=== PATIENT | male | born 1975 | race Caucasian/White ===

== ENCOUNTER 2017-12-27 10:01 | Inpatient (IN) | payer BC, OTHER ==
[2017-12-27] MEDS ORDERED: ACETAMINOPHEN 325 MG TABLET PO PRN (10:21)
--- NOTE | 2017-12-27 10:42 | PDOC H&P ---
History of Present Illness Admission Date/PCP: 12/27/17 10:01 MAK PITTMAN Patient complains of: Short of breath and wheezing History of Present Illness: MIRANDA HOLT is a 42 year old male This is a 42-year-old male with a significant history of the asthma currently on the Symbicort and pro-air and history of the childhood asthma came to the office last week with a complaining of a cough congestion's and wheezing and patient was initially put on a prednisone and antibiotic Z-Taye but patient still not improving was giving the 1 dose of the 60 mg IM dose of prednisone and put on a Medrol Dosepak and another antibioticBut the patient still not responding very well and today's in the office patient still wheezing and some mild short of breath but denied any fever no chills no chest pain and at this point decided to admit the hospitals for the outpatients failure for the persistent asthma Past Medical History Pulmonary Medical History: Reports: Asthma GI Medical History: Reports: Gastroesophageal Reflux Disease Social History Information Source: Patient Smoking Status: Never Smoker Frequency of Alcohol Use: Occasional Hx Recreational Drug Use: No Family History Family History: Reviewed & Not Pertinent Parental Family History Reviewed: Yes Children Family History Reviewed: Yes Sibling(s) Family History Reviewed.: Yes Medication/Allergy Allergies/Adverse Reactions: No Known Allergies Allergy (Unverified 12/27/17 10:36) Review of Systems Constitutional: ABSENT: chills, fever(s), headache(s), weight gain, weight loss Eyes: ABSENT: visual disturbances Ears: ABSENT: hearing changes Cardiovascular: PRESENT: dyspnea on exertion. ABSENT: chest pain, edema, orthropnea, palpitations Respiratory: PRESENT: cough. ABSENT: hemoptysis Gastrointestinal: ABSENT: abdominal pain, constipation, diarrhea, hematemesis, hematochezia, nausea, vomiting Genitourinary: ABSENT: dysuria, hematuria Musculoskeletal: ABSENT: joint swelling Integumentary: ABSENT: rash, wounds Neurological: ABSENT: abnormal gait, abnormal speech, confusion, dizziness, focal weakness, syncope Psychiatric: ABSENT: anxiety, depression, homidical ideation, suicidal ideation Endocrine: ABSENT: cold intolerance, heat intolerance, menstrual abnormalities, polydipsia, polyuria Hematologic/Lymphatic: ABSENT: easy bleeding, easy bruising, lymphadenopathy Physical Exam Vital Signs: Temp Pulse Resp BP Pulse Ox 97.3 F 65 21 H 142/80 H 95 12/27/17 10:33 12/27/17 10:33 12/27/17 10:33 12/27/17 10:33 12/27/17 10:33 Intake & Output 12/26/17 12/27/17 12/28/17 06:59 06:59 06:59 Weight 99.63 kg General appearance: PRESENT: no acute distress, well-developed, well-nourished Head exam: PRESENT: atraumatic, normocephalic Eye exam: PRESENT: conjunctiva pink, EOMI, PERRLA. ABSENT: scleral icterus Ear exam: PRESENT: normal external ear exam Mouth exam: PRESENT: moist, tongue midline Neck exam: PRESENT: full ROM. ABSENT: carotid bruit, JVD, lymphadenopathy, thyromegaly Respiratory exam: PRESENT: decreased breath sounds, wheezes Cardiovascular exam: PRESENT: RRR. ABSENT: diastolic murmur, rubs, systolic murmur Pulses: PRESENT: normal dorsalis pedis pul, +2 pedal pulses bilateral Vascular exam: PRESENT: normal capillary refill GI/Abdominal exam: PRESENT: normal bowel sounds, soft. ABSENT: distended, guarding, mass, organolmegaly, rebound, tenderness Rectal exam: PRESENT: deferred Extremities exam: ABSENT: full ROM, left AKA, right AKA, left BKA, right BKA, calf tenderness, joint swelling, pedal edema, tenderness, other Musculoskeletal exam: PRESENT: ambulatory Neurological exam: PRESENT: alert, awake, oriented to person, oriented to place , oriented to time, oriented to situation, CN II-XII grossly intact. ABSENT: motor sensory deficit Psychiatric exam: PRESENT: appropriate affect, normal mood. ABSENT: homicidal ideation, suicidal ideation Skin exam: PRESENT: dry, intact, warm. ABSENT: cyanosis, rash Assessment & Plan - Diagnosis (1) Asthma Qualifiers: Asthma severity: moderate Asthma persistence: persistent Asthma complication type: with acute exacerbation Qualified Code(s): J45.41 - Moderate persistent asthma with (acute) exacerbation Is this a current diagnosis for this admission?: Yes Plan: Admit the patient's in the hospital start the patient on IV steroid and nebulizer treatments (2) Shortness of breath Is this a current diagnosis for this admission?: Yes Plan: Most likely due to the above conditions will get the CT of the chest - Time Time Spent: 30 to 50 Minutes Medications reviewed and adjusted accordingly: Yes Anticipated discharge: Home Within: Other - Inpatient Certification Medical Necessity: Need Close Monitoring Due to Risk of Patient Decompensation, Need for IV Antibiotics 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
[2017-12-27] MEDS ORDERED: ENOXAPARIN SODIUM INJ 40 MG/0.4 ML DISP.SYRIN SUBCUT ONE (11:30)
[2017-12-27 11:36] LABS: ABSOLUTE EOSINOPHILS # (AUTO) 0.1 10^3/uL (0.0-0.6); ABSOLUTE LYMPHOCYTES (AUTO) 1.9 10^3/uL (0.5-4.7); BASOPHILS % (AUTO) 0.5 % (0-2); EOSINOPHILS % (AUTO) 1.3 % (0-6); HEMATOCRIT 46.1 % (37.9-51.0); HEMOGLOBIN 15.6 g/dL (13.5-17.0); LYMPHOCYTES % (AUTO) 23.3 % (13-45); MEAN CORPUSCULAR HEMOGLOBIN 27.9 pg (27.0-33.4); MEAN CORPUSCULAR HGB CONC 33.8 g/dL (32.0-36.0); MEAN CORPUSCULAR VOLUME 83 fl (80-97); MONOCYTES % (AUTO) 12.4 % (3-13); PLATELET COUNT 203 10^3/uL (150-450); RED BLOOD COUNT 5.58 10^6/uL (4.35-5.55); RED CELL DISTRIBUTION WIDTH 13.7 % (11.5-14.0); SEGMENTED NEUTROPHILS % (AUTO) 62.5 % (42-78); TOTAL CELLS COUNTED % (AUTO) 100 %; WHITE BLOOD COUNT 8.1 10^3/uL (4.0-10.5)
[2017-12-27] MEDS: IPRATROPIUM/ALBUTEROL 0.5-2.5 MG/3 ML AMPUL NEB SCH ×4 (11:53→23:50)
[2017-12-27 11:56] LABS: ANION GAP 11 (5-19); BLOOD UREA NITROGEN 16 mg/dL (7-20); CALCIUM 9.7 mg/dL (8.4-10.2); CARBON DIOXIDE 28 mmol/L (22-30); CHLORIDE 104 mmol/L (98-107); GLUCOSE 103 mg/dL (75-110); POTASSIUM 4.2 mmol/L (3.6-5.0); SODIUM 142.8 mmol/L (137-145)
--- NOTE | 2017-12-27 12:43 | RADIOLOGY REPORT (SQ) ---
EXAM DESCRIPTION: CT CHEST WITHOUT COMPLETED DATE/TIME: 12/27/2017 10:57 am REASON FOR STUDY: shortness of breath COMPARISON: Chest radiographs 08/12/2017 TECHNIQUE: CT scan performed of the chest without intravenous contrast. Images reviewed with lung, soft tissue and bone windows. Reconstructed coronal and sagittal MPR images reviewed. All images st ored on PACS. All CT scanners at this facility use dose modulation, iterative reconstruction, and/or weight based d osing when appropriate to reduce radiation dose to as low as reasonably achievable (ALARA). [facility]: Dose Right [facility]: CareDose [facility]: Dose Right [facility]: Teradose 4D [facility]: [employer] RADIATION DOSE: CT Rad equipment meets quality standard of care and radiation dose reduction techniq ues were employed. CTDIvol: 11.9 mGy. DLP: 457 mGy-cm. mGy. LIMITATIONS: No technical limitations. FINDINGS: LUNGS AND PLEURA: There is a group of 3 small ground-glass nodules just above the left hem idiaphragm seen best on image 84 series 4 and image 66 series 601. No pulmonary infiltrate or pleura l effusion is seen. No other masses seen. HILAR AND MEDIASTINAL STRUCTURES: No identified masses or abnormal nodes. No obvious aneurysm. HEART AND VASCULAR STRUCTURES: No aneurysm. No pericardial effusion. UPPER ABDOMEN: No significant findings. Limited exam. THYROID AND OTHER SOFT TISSUES: No masses. No adenopathy. BONES: No significant finding. HARDWARE: None in the chest. OTHER: No other significant findings. IMPRESSION: A small ground-glass nodules just above the left hemidiaphragm these and may be inflamma tory. Neoplasm seems less likely. COMMENT: Fleischner Criteria for Ground Glass Nodules: >6mm subsolid multiple nodules: CT 3-6 mo; subsequent management based on most suspicious nodules. TECHNICAL DOCUMENTATION: JOB ID: [id number] Quality ID # [id number]: Final reports with documentation of one or more dose reduction techniques (e.g., Au tomated exposure control, adjustment of the mA and/or kV according to patient size, use of iterative reconstruction technique) 2010 [employer]- All Rights Reserved Reading location - IP/workstation name: [email or web address]
[2017-12-27] MEDS: METHYLPREDNISOLONE INJ 40 MG/1 ML SDV IV SCH ×3 (13:25→23:29)
[2017-12-27] MEDS: CEFTRIAXONE SODIUM 1,000 MG in NORMAL SALINE 100 ML IV SCH (13:26)
[2017-12-27] MEDS ORDERED: GUAIFENESIN SYRP 200 MG/10 ML UDC PO PRN (17:56)
[2017-12-27] MEDS: FAMOTIDINE 20 MG TABLET PO SCH (21:54)
[2017-12-27] MEDS: MONTELUKAST SODIUM 10 MG TABLET PO SCH (21:55)
[2017-12-27] MEDS: TRAZODONE HCL 50 MG TABLET PO PRN (21:57)
[2017-12-28] MEDS: IPRATROPIUM/ALBUTEROL 0.5-2.5 MG/3 ML AMPUL NEB SCH ×6 (03:42→23:28)
[2017-12-28] MEDS: METHYLPREDNISOLONE INJ 40 MG/1 ML SDV IV SCH ×4 (05:58→23:35)
[2017-12-28 06:16] LABS: ABSOLUTE LYMPHOCYTES (AUTO) 1.1 10^3/uL (0.5-4.7); ABSOLUTE MONOCYTES (AUTO) 0.4 10^3/uL (0.1-1.4); ABSOLUTE NEUT (AUTO) 8.7 10^3/uL (1.7-8.2); BASOPHILS % (AUTO) 0.2 % (0-2); HEMATOCRIT 44.9 % (37.9-51.0); HEMOGLOBIN 15.2 g/dL (13.5-17.0); MEAN CORPUSCULAR HGB CONC 33.9 g/dL (32.0-36.0); MEAN CORPUSCULAR VOLUME 83 fl (80-97); PLATELET COUNT 203 10^3/uL (150-450); RED BLOOD COUNT 5.44 10^6/uL (4.35-5.55); RED CELL DISTRIBUTION WIDTH 13.9 % (11.5-14.0); SEGMENTED NEUTROPHILS % (AUTO) 84.8 % (42-78); TOTAL CELLS COUNTED % (AUTO) 100 %; WHITE BLOOD COUNT 10.3 10^3/uL (4.0-10.5)
[2017-12-28 06:32] LABS: ANION GAP 11 (5-19); BLOOD UREA NITROGEN 18 mg/dL (7-20); CALCIUM 9.8 mg/dL (8.4-10.2); CARBON DIOXIDE 23 mmol/L (22-30); CHLORIDE 106 mmol/L (98-107); GLUCOSE 186 mg/dL (75-110); POTASSIUM 4.4 mmol/L (3.6-5.0); SODIUM 139.6 mmol/L (137-145)
[2017-12-28] MEDS: FAMOTIDINE 20 MG TABLET PO SCH ×2 (09:30→21:20)
[2017-12-28] MEDS: AZITHROMYCIN 250 MG TABLET PO SCH (09:30)
[2017-12-28] MEDS: ENOXAPARIN SODIUM INJ 40 MG/0.4 ML DISP.SYRIN SUBCUT SCH (09:30)
[2017-12-28] MEDS ORDERED: CEFTRIAXONE 1 GM/D5W RTU 1 GM/50 ML RTUPB IV SCH (10:00)
[2017-12-28] MEDS: CEFTRIAXONE SODIUM 1,000 MG in NORMAL SALINE 100 ML IV SCH (11:45)
--- NOTE | 2017-12-28 12:28 | PDOC PROGRESS REPORT ---
Subjective Progress Note for:: 12/28/17 Subjective:: Patient is feeling much better Seen by Dr. Barajas and myself today Patient's denied any short of breath denied any chest pain Patients walk in the hallway without any problem Reason For Visit: ASTHMA Physical Exam Vital Signs: Temp Pulse Resp BP Pulse Ox 97.5 F 88 16 129/80 H 98 12/28/17 11:55 12/28/17 12:15 12/28/17 12:15 12/28/17 11:55 12/28/17 12:15 Intake & Output 12/27/17 12/28/17 12/29/17 06:59 06:59 06:59 Intake Total 505 Balance 505 Weight 99 kg General appearance: PRESENT: no acute distress, well-developed, well-nourished Head exam: PRESENT: atraumatic, normocephalic Eye exam: PRESENT: conjunctiva pink, EOMI, PERRLA. ABSENT: scleral icterus Ear exam: PRESENT: normal external ear exam Mouth exam: PRESENT: moist, tongue midline Neck exam: PRESENT: full ROM. ABSENT: carotid bruit, JVD, lymphadenopathy, thyromegaly Respiratory exam: PRESENT: wheezes Cardiovascular exam: PRESENT: RRR. ABSENT: diastolic murmur, rubs, systolic murmur Pulses: PRESENT: normal dorsalis pedis pul, +2 pedal pulses bilateral Vascular exam: PRESENT: normal capillary refill GI/Abdominal exam: PRESENT: normal bowel sounds, soft. ABSENT: distended, guarding, mass, organolmegaly, rebound, tenderness Rectal exam: PRESENT: deferred Extremities exam: ABSENT: pedal edema Musculoskeletal exam: PRESENT: ambulatory Neurological exam: PRESENT: alert, awake, oriented to person, oriented to place , oriented to time, oriented to situation, CN II-XII grossly intact. ABSENT: motor sensory deficit Psychiatric exam: PRESENT: appropriate affect, normal mood. ABSENT: homicidal ideation, suicidal ideation Skin exam: PRESENT: dry, intact, warm. ABSENT: cyanosis, rash Results Laboratory Results: 12/28/17 05:55 12/28/17 05:55 12/28/17 12/28/17 05:55 05:55 WBC 10.3 RBC 5.44 Hgb 15.2 Hct 44.9 MCV 83 MCH 28.0 MCHC 33.9 RDW 13.9 Plt Count 203 Seg Neutrophils % 84.8 H Lymphocytes % 11.0 L Monocytes % 4.0 Eosinophils % 0.0 Basophils % 0.2 Absolute Neutrophils 8.7 H Absolute Lymphocytes 1.1 Absolute Monocytes 0.4 Absolute Eosinophils 0.0 Absolute Basophils 0.0 Sodium 139.6 Potassium 4.4 Chloride 106 Carbon Dioxide 23 Anion Gap 11 BUN 18 Creatinine 0.89 Est GFR ( Amer) > 60 Est GFR (Non-Af Amer) > 60 Glucose 186 H Calcium 9.8 Impressions: Chest CT 12/27/17 00:00 IMPRESSION: A small ground-glass nodules just above the left hemidiaphragm these and may be inflammatory. Neoplasm seems less likely. Assessment & Plan - Diagnosis (1) Asthma Qualifiers: Asthma severity: moderate Asthma persistence: persistent Asthma complication type: with acute exacerbation Qualified Code(s): J45.41 - Moderate persistent asthma with (acute) exacerbation Is this a current diagnosis for this admission?: Yes Plan: Admit the patient's in the hospital start the patient on IV steroid and nebulizer treatments (2) Shortness of breath Is this a current diagnosis for this admission?: Yes Plan: Currently all improving - Time Time Spent with patient: 15-24 minutes Medications reviewed and adjusted accordingly: Yes Anticipated discharge: Other Within: Other - Inpatient Certification Medical Necessity: Need Close Monitoring Due to Risk of Patient Decompensation 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
[2017-12-28] MEDS ORDERED: PHENOL/SODIUM PHENOLATE 100 SPRAY/177 ML BOTTLE PO PRN (13:00)
[2017-12-28] MEDS: BUDESONIDE NEB 0.5 MG/2 ML AMPUL NEB SCH (20:28)
[2017-12-28] MEDS: MONTELUKAST SODIUM 10 MG TABLET PO SCH (21:20)
[2017-12-28] MEDS: TRAZODONE HCL 50 MG TABLET PO PRN (23:35)
[2017-12-29] MEDS: IPRATROPIUM/ALBUTEROL 0.5-2.5 MG/3 ML AMPUL NEB SCH ×5 (04:48→20:25)
--- NOTE | 2017-12-29 07:08 | PDOC PROGRESS REPORT ---
Subjective Progress Note for:: 12/29/17 Subjective:: Patient is feeling much better Denied any chest pain denied any shortness of the breath still with some productive cough Reason For Visit: ASTHMA Physical Exam Vital Signs: Temp Pulse Resp BP Pulse Ox 97.4 F 80 16 124/73 100 12/28/17 23:34 12/29/17 02:00 12/28/17 23:34 12/28/17 23:34 12/28/17 23:34 Intake & Output 12/28/17 12/29/17 12/30/17 06:59 06:59 06:59 Intake Total 505 1052 Output Total 5 Balance 505 1047 Weight 99 kg 96.4 kg General appearance: PRESENT: no acute distress, well-developed, well-nourished Head exam: PRESENT: atraumatic, normocephalic Eye exam: PRESENT: conjunctiva pink, EOMI, PERRLA. ABSENT: scleral icterus Ear exam: PRESENT: normal external ear exam Mouth exam: PRESENT: moist, tongue midline Neck exam: PRESENT: full ROM. ABSENT: carotid bruit, JVD, lymphadenopathy, thyromegaly Respiratory exam: PRESENT: clear to auscultation rayne Cardiovascular exam: PRESENT: RRR. ABSENT: diastolic murmur, rubs, systolic murmur Pulses: PRESENT: normal dorsalis pedis pul, +2 pedal pulses bilateral Vascular exam: PRESENT: normal capillary refill GI/Abdominal exam: PRESENT: normal bowel sounds, soft. ABSENT: distended, guarding, mass, organolmegaly, rebound, tenderness Rectal exam: PRESENT: deferred Musculoskeletal exam: PRESENT: ambulatory Neurological exam: PRESENT: alert, awake, oriented to person, oriented to place , oriented to time, oriented to situation, CN II-XII grossly intact. ABSENT: motor sensory deficit Psychiatric exam: PRESENT: appropriate affect, normal mood. ABSENT: homicidal ideation, suicidal ideation Skin exam: PRESENT: dry, intact, warm. ABSENT: cyanosis, rash Results Laboratory Results: 12/28/17 05:55 12/28/17 05:55 Impressions: Chest CT 12/27/17 00:00 IMPRESSION: A small ground-glass nodules just above the left hemidiaphragm these and may be inflammatory. Neoplasm seems less likely. Assessment & Plan - Diagnosis (1) Asthma Qualifiers: Asthma severity: moderate Asthma persistence: persistent Asthma complication type: with acute exacerbation Qualified Code(s): J45.41 - Moderate persistent asthma with (acute) exacerbation Is this a current diagnosis for this admission?: Yes Plan: We will decrease the IV steroid continues to current inhaler (2) Shortness of breath Is this a current diagnosis for this admission?: Yes Plan: All stable - Time Time Spent with patient: 15-24 minutes Medications reviewed and adjusted accordingly: Yes Anticipated discharge: Home Within: within 24 hours - Inpatient Certification Medical Necessity: Need Close Monitoring Due to Risk of Patient Decompensation 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 and discharge possible tomorrow if he remains stable
[2017-12-29 07:39] LABS: ANION GAP 12 (5-19); BLOOD UREA NITROGEN 18 mg/dL (7-20); CALCIUM 9.9 mg/dL (8.4-10.2); CARBON DIOXIDE 26 mmol/L (22-30); CHLORIDE 105 mmol/L (98-107); GLUCOSE 149 mg/dL (75-110); POTASSIUM 4.5 mmol/L (3.6-5.0); SODIUM 142.5 mmol/L (137-145)
[2017-12-29] MEDS: BUDESONIDE NEB 0.5 MG/2 ML AMPUL NEB SCH ×2 (08:17→20:24)
[2017-12-29] MEDS: AZITHROMYCIN 250 MG TABLET PO SCH (09:23)
[2017-12-29] MEDS: FAMOTIDINE 20 MG TABLET PO SCH ×2 (09:24→21:00)
[2017-12-29] MEDS: ENOXAPARIN SODIUM INJ 40 MG/0.4 ML DISP.SYRIN SUBCUT SCH (09:24)
[2017-12-29] MEDS: CEFTRIAXONE SODIUM 1,000 MG in NORMAL SALINE 100 ML IV SCH (11:30)
[2017-12-29] MEDS: METHYLPREDNISOLONE INJ 40 MG/1 ML SDV IV SCH ×2 (14:52→21:00)
[2017-12-29] MEDS: MONTELUKAST SODIUM 10 MG TABLET PO SCH (20:59)
[2017-12-30] MEDS: IPRATROPIUM/ALBUTEROL 0.5-2.5 MG/3 ML AMPUL NEB SCH ×4 (00:19→11:07)
[2017-12-30] MEDS: TRAZODONE HCL 50 MG TABLET PO PRN (00:47)
[2017-12-30] MEDS: METHYLPREDNISOLONE INJ 40 MG/1 ML SDV IV SCH (06:04)
[2017-12-30 07:08] LABS: ANION GAP 11 (5-19); BLOOD UREA NITROGEN 19 mg/dL (7-20); CALCIUM 9.1 mg/dL (8.4-10.2); CARBON DIOXIDE 23 mmol/L (22-30); CHLORIDE 108 mmol/L (98-107); GLUCOSE 124 mg/dL (75-110); POTASSIUM 4.4 mmol/L (3.6-5.0); SODIUM 141.8 mmol/L (137-145)
[2017-12-30] MEDS: FAMOTIDINE 20 MG TABLET PO SCH (08:26)
[2017-12-30] MEDS: AZITHROMYCIN 250 MG TABLET PO SCH (08:26)
[2017-12-30] MEDS: ENOXAPARIN SODIUM INJ 40 MG/0.4 ML DISP.SYRIN SUBCUT SCH (08:26)
[2017-12-30] MEDS ORDERED: INFLUENZA ADLT QUAD (36MOS+) 2017-18 VAC 0.5 ML SYR IM PRN (08:33)
[2017-12-30 08:36] VITALS: BP 142/80
[2017-12-30] MEDS: BUDESONIDE NEB 0.5 MG/2 ML AMPUL NEB SCH (08:49)
--- NOTE | 2017-12-30 13:55 | PDOC DISCHARGE SUMMARY ---
General - Admit/Disc Date/PCP Admission Date/Primary Care Provider: 12/27/17 10:01 MAK PITTMAN Discharge Date: 12/30/17 - Discharge Diagnosis (1) Asthma Is this a current diagnosis for this admission?: Yes Summary: This is a 42-year-old male with a significant history of the asthma failed outpatient treatments admitting in the hospital for IV Solu-Medrol and nebulizer treatment Patient also seen by the pulmonary and add the Pulmicort nebulizer Patient's response very well with the treatments patient's otherwise reduce the steroid and patients move in the hallway without any problems and patient does not require any oxygen's and patient is very anxious to go home because patient has some pending work Discussed with the pulmonary and suggest this put on the p.o. steroid and a tapering dose and follow outpatient and use a peak flow meter Patient's was putting in the Pulmicort nebulizer and the DuoNeb patient have Augmentin and Zithromax at home continues that medications and following a one- week and restart the patient other inhaler (2) Shortness of breath Is this a current diagnosis for this admission?: Yes - Additional Information Discharge Diet: Regular Discharge Activity: Activity As Tolerated Prescriptions: Budesonide [Pulmicort Neb 0.5 mg/2 ml Ampul] 0.5 mg NEB RTQ12 #60 ampul.neb Ipratropium/Albuterol Sulfate [Duoneb 3 ml Ampul] 3 ml NEB RTQ4 PRN #120 vial.neb PRN Reason: Prednisone 20 mg PO ASDIR PRN #15 tablet PRN Reason: Home Medications: Albuterol Sulfate [Proair HFA Inhalation Aerosol 8.5 gm MDI] 2 puff IH Q4HP PRN 12/27/17 Amox Tr/Potassium Clavulanate [Augmentin 875-125 mg Tablet] 1 tab PO BID MDD FILLED 12/25 FOR 7DS 12/27/17 Montelukast Sodium [Singulair 10 mg Tablet] 10 mg PO QHS 12/27/17 Omeprazole 40 mg PO DAILY 12/27/17 Trazodone HCl [Desyrel 50 mg Tablet] 100 mg PO HSP PRN 12/27/17 Budesonide [Pulmicort Neb 0.5 mg/2 ml Ampul] 0.5 mg NEB RTQ12 #60 ampul.neb Ipratropium/Albuterol Sulfate [Duoneb 3 ml Ampul] 3 ml NEB RTQ4 PRN #120 vial.neb 12/30/17 Prednisone 20 mg PO ASDIR PRN #15 tablet 12/30/17 History of Present Illness History of Present Illness: MIRANDA HOLT is a 42 year old male This is a 42-year-old male with a significant history of the asthma currently on the Symbicort and pro-air and history of the childhood asthma came to the office last week with a complaining of a cough congestion's and wheezing and patient was initially put on a prednisone and antibiotic Z-Taye but patient still not improving was giving the 1 dose of the 60 mg IM dose of prednisone and put on a Medrol Dosepak and another antibioticBut the patient still not responding very well and today's in the office patient still wheezing and some mild short of breath but denied any fever no chills no chest pain and at this point decided to admit the hospitals for the outpatients failure for the persistent asthma Hospital Course Hospital Course: This is a 42-year-old male presented in the office with the asthma which failed outpatient treatment and patients directly admitted in the hospital and patient was started an IV Solu-Medrol and the nebulizer Patient's response very well with the treatments and pulmonary was also consulted and add the Pulmicort nebulizer Patient otherwise reduce the steroid dose and patient is very anxious to go home with some pending work in patients this point discussed with the pulmonary and suggest a discharge with the p.o. steroid And have antibiotic at home with Augmentin and Zithromax continues that Patient's otherwise no need oxygen patients walk without any oxygens and no wheezing Also given a peak flow meter Patients giving the DuoNeb and Pulmicort nebulizer and tapering dose of the steroid and currently hold the Symbicort Physical Exam Vital Signs: Temp Pulse Resp BP Pulse Ox 98.0 F 78 18 142/80 H 93 12/30/17 08:35 12/30/17 08:49 12/30/17 08:49 12/30/17 08:35 12/30/17 08:49 Intake & Output 12/29/17 12/30/17 12/31/17 06:59 06:59 06:59 Intake Total 1052 1341 Output Total 5 Balance 1047 1341 Weight 96.4 kg 96.1 kg General appearance: PRESENT: no acute distress, well-developed, well-nourished Head exam: PRESENT: atraumatic, normocephalic Eye exam: PRESENT: conjunctiva pink, EOMI, PERRLA. ABSENT: scleral icterus Ear exam: PRESENT: normal external ear exam Mouth exam: PRESENT: moist, tongue midline Neck exam: PRESENT: full ROM. ABSENT: carotid bruit, JVD, lymphadenopathy, thyromegaly Respiratory exam: PRESENT: clear to auscultation rayne Cardiovascular exam: PRESENT: RRR. ABSENT: diastolic murmur, rubs, systolic murmur Pulses: PRESENT: normal dorsalis pedis pul, +2 pedal pulses bilateral Vascular exam: PRESENT: normal capillary refill GI/Abdominal exam: PRESENT: normal bowel sounds, soft. ABSENT: distended, guarding, mass, organolmegaly, rebound, tenderness Rectal exam: PRESENT: deferred Extremities exam: ABSENT: joint swelling Musculoskeletal exam: PRESENT: ambulatory Neurological exam: PRESENT: alert, awake, oriented to person, oriented to place , oriented to time, oriented to situation, CN II-XII grossly intact. ABSENT: motor sensory deficit Psychiatric exam: PRESENT: appropriate affect, normal mood. ABSENT: homicidal ideation, suicidal ideation Skin exam: PRESENT: dry, intact, warm. ABSENT: cyanosis, rash Results Laboratory Results: 12/28/17 05:55 12/30/17 06:05 12/30/17 06:05 Sodium 141.8 Potassium 4.4 Chloride 108 H Carbon Dioxide 23 Anion Gap 11 BUN 19 Creatinine 0.82 Est GFR ( Amer) > 60 Est GFR (Non-Af Amer) > 60 Glucose 124 H Calcium 9.1 Impressions: Chest CT 12/27/17 00:00 IMPRESSION: A small ground-glass nodules just above the left hemidiaphragm these and may be inflammatory. Neoplasm seems less likely. Qualifiers - * PATEINT BEING DISCHARGED WITH ANY OF THE FOLLOWING DIAGNOSIS?: No Plan Time Spent: Greater than 30 Minutes - Patient is discharged home with the stable conditions follow-up outpatient in 1 week and restart the Symbicort and DC the Pulmicort
== END 2017-12-30 10:48 | disposition home or self-care (01) | DRG 203 ==
LOC: 3S 10:01 → OBSVTOIN 10:01 → INTOOBSV 10:01
PROVIDERS: ADMIT Family Medicine; ATTEND Family Medicine
PROC: 3E0F73Z Introduction of Anti-inflammatory into Respiratory Tract, Via Natural or Artificial Opening (ICD-10-PCS; 2017-12-27)
PROC: 3E0234Z Introduction of Serum, Toxoid and Vaccine into Muscle, Percutaneous Approach (ICD-10-PCS; principal; 2017-12-30)
DX: J45.41 Moderate persistent asthma with (acute) exacerbation (principal); K21.9 Gastro-esophageal reflux disease without esophagitis; Z79.51 Long term (current) use of inhaled steroids
CPT/HCPCS: 36415; 71250; 80048; 85025; 87040; 90686; J0696; J2920; J3490; J7620

== ENCOUNTER 2018-09-18 10:21 | Emergency (ER) | payer OTHER, BC ==
[2018-09-18] MEDS ORDERED: FENTANYL CITRATE INJ/PF 100 MCG/2 ML AMPUL IM ONE (11:29)
[2018-09-18] MEDS ORDERED: KETOROLAC TROMETHAMINE 60 MG/2 ML SDV IM ONE (11:29)
[2018-09-18] MEDS ORDERED: ONDANSETRON 4 MG TAB.RAPDIS PO ONE (11:29)
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
[2018-09-18] MEDS ORDERED: HYDROMORPHONE HCL INJ/PF 2 MG/ML AMPULE IV ONE ×3 (11:57→15:43)
[2018-09-18] MEDS ORDERED: ONDANSETRON HCL INJ/PF 4 MG/2 ML SDV IV ONE ×2 (11:58→15:57)
[2018-09-18] MEDS ORDERED: NORMAL SALINE 1000 ML 1,000 ML IV ONE (12:03)
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
[2018-09-18 12:37] LABS: ABSOLUTE BASOPHILS # (AUTO) 0.1 10^3/uL (0.0-0.2); ABSOLUTE EOSINOPHILS # (AUTO) 0.3 10^3/uL (0.0-0.6); ABSOLUTE LYMPHOCYTES (AUTO) 1.2 10^3/uL (0.5-4.7); ABSOLUTE MONOCYTES (AUTO) 0.7 10^3/uL (0.1-1.4); ABSOLUTE NEUT (AUTO) 10.8 10^3/uL (1.7-8.2); BASOPHILS % (AUTO) 0.7 % (0-2); EOSINOPHILS % (AUTO) 2.5 % (0-6); HEMATOCRIT 48.3 % (37.9-51.0); HEMOGLOBIN 16.1 g/dL (13.5-17.0); LYMPHOCYTES % (AUTO) 8.9 % (13-45); MEAN CORPUSCULAR HEMOGLOBIN 27.5 pg (27.0-33.4); MEAN CORPUSCULAR HGB CONC 33.3 g/dL (32.0-36.0); MEAN CORPUSCULAR VOLUME 83 fl (80-97); MONOCYTES % (AUTO) 5.5 % (3-13); PLATELET COUNT 264 10^3/uL (150-450); RED BLOOD COUNT 5.86 10^6/uL (4.35-5.55); RED CELL DISTRIBUTION WIDTH 14.1 % (11.5-14.0); SEGMENTED NEUTROPHILS % (AUTO) 82.4 % (42-78); TOTAL CELLS COUNTED % (AUTO) 100 %; WHITE BLOOD COUNT 13.1 10^3/uL (4.0-10.5)
[2018-09-18 13:02] LABS: ALANINE AMINOTRANSFERASE 65 U/L (21-72); ALBUMIN 4.4 g/dL (3.5-5.0); ALKALINE PHOSPHATASE 73 U/L (38-126); ANION GAP 9 (5-19); ASPARTATE AMINO TRANSFERASE 52 U/L (17-59); BILIRUBIN,DIRECT 0.4 mg/dL (0.0-0.4); BILIRUBIN,TOTAL 1.5 mg/dL (0.2-1.3); BLOOD UREA NITROGEN 13 mg/dL (7-20); CALCIUM 9.4 mg/dL (8.4-10.2); CARBON DIOXIDE 27 mmol/L (22-30); CHLORIDE 105 mmol/L (98-107); GLUCOSE 137 mg/dL (75-110); POTASSIUM 4.8 mmol/L (3.6-5.0); SODIUM 141.1 mmol/L (137-145); TOTAL PROTEIN 7.2 g/dL (6.3-8.2)
[2018-09-18 14:21] LABS: APPEARANCE,URINE SLIGHTLY-CLOUDY; BILIRUBIN,URINE NEGATIVE (NEGATIVE); COLOR,URINE YELLOW; GLUCOSE, URINE NEGATIVE (NEGATIVE); KETONES,URINE NEGATIVE (NEGATIVE); LEUKOCYTE ESTERASE,URINE NEGATIVE (NEGATIVE); NITRITE,URINE NEGATIVE (NEGATIVE); PROTEIN,URINE 30 mg/dL (NEGATIVE); URINE SPECIFIC GRAVITY 1.023; UROBILINOGEN,URINE NEGATIVE mg/dL (<2.0)
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
[2018-09-18 15:50] VITALS: BP 110/69
--- NOTE | 2018-09-18 21:26 | EKG REPORT ---
SEVERITY:- BORDERLINE ECG - SINUS RHYTHM PROBABLE LEFT ATRIAL ABNORMALITY : Confirmed by: Tami Salazar MD 18-Sep-2018 21:25:43
== END 2018-09-18 16:14 | disposition home or self-care (01) ==
LOC: ER 10:21
DX: S22.42XA Multiple fractures of ribs, left side, initial encounter for closed fracture (principal); V23.4XXA Motorcycle driver injured in collision with car, pick-up truck or van in traffic accident, initial encounter; J45.909 Unspecified asthma, uncomplicated
CPT/HCPCS: 93005; 96376; 99284; 96372; 96361; 96374; 96375; 36415; 85025; 80053; 81001; 71046; 71250; 72125; 93010; J1885; S0119; J3010; J1170; J2405; J7030

== ENCOUNTER → 2018-12-26 | Outpatient (CLI) | payer BC ==
[2018-12-26 09:44] LABS: ABSOLUTE BASOPHILS # (AUTO) 0.1 10^3/uL (0.0-0.2); ABSOLUTE EOSINOPHILS # (AUTO) 0.3 10^3/uL (0.0-0.6); ABSOLUTE LYMPHOCYTES (AUTO) 2.5 10^3/uL (0.5-4.7); ABSOLUTE MONOCYTES (AUTO) 0.8 10^3/uL (0.1-1.4); ABSOLUTE NEUT (AUTO) 6.7 10^3/uL (1.7-8.2); HEMATOCRIT 49.1 % (37.9-51.0); HEMOGLOBIN 16.8 g/dL (13.5-17.0); LYMPHOCYTES % (AUTO) 24.3 % (13-45); MEAN CORPUSCULAR HEMOGLOBIN 28.2 pg (27.0-33.4); MEAN CORPUSCULAR HGB CONC 34.2 g/dL (32.0-36.0); MEAN CORPUSCULAR VOLUME 83 fl (80-97); MONOCYTES % (AUTO) 7.4 % (3-13); PLATELET COUNT 316 10^3/uL (150-450); RED BLOOD COUNT 5.95 10^6/uL (4.35-5.55); RED CELL DISTRIBUTION WIDTH 14.8 % (11.5-14.0); SEGMENTED NEUTROPHILS % (AUTO) 64.3 % (42-78); TOTAL CELLS COUNTED % (AUTO) 100 %; WHITE BLOOD COUNT 10.5 10^3/uL (4.0-10.5)
[2018-12-26 10:15] LABS: ALANINE AMINOTRANSFERASE 44 U/L (21-72); ALBUMIN 4.2 g/dL (3.5-5.0); ALKALINE PHOSPHATASE 86 U/L (38-126); ANION GAP 12 (5-19); ASPARTATE AMINO TRANSFERASE 30 U/L (17-59); BILIRUBIN,DIRECT 0.3 mg/dL (0.0-0.4); BILIRUBIN,TOTAL 0.7 mg/dL (0.2-1.3); BLOOD UREA NITROGEN 8 mg/dL (7-20); CALCIUM 9.9 mg/dL (8.4-10.2); CARBON DIOXIDE 27 mmol/L (22-30); CHLORIDE 102 mmol/L (98-107); GLUCOSE 107 mg/dL (75-110); POTASSIUM 4.2 mmol/L (3.6-5.0); SODIUM 141.2 mmol/L (137-145); TOTAL PROTEIN 7.3 g/dL (6.3-8.2)
[2018-12-26 10:34] LABS: DIRECT LDL 88 mg/dL (<100)
== END ==
LOC: LAB 09:18
PROVIDERS: ATTEND Physician Assistant
DX: E78.2 Mixed hyperlipidemia (principal); Z68.26 Body mass index [BMI] 26.0-26.9, adult
CPT/HCPCS: 36415; 80053; 83721; 84443; 85025